=== PATIENT | female | born 1980 | race Caucasian/White ===

== ENCOUNTER 2018-05-07 15:24 | Emergency (ER) | payer SELFPAY ==
[~2018-05-07] VITALS: Ht 170.2 cm; Wt 104.5 kg
[2018-05-07 15:26] VITALS: BP 124/76; PULSE 72; TEMP 97.6
[2018-05-07] MEDS ORDERED: PEN-VEE K500 MG PO (15:43)
[2018-05-07] MEDS ORDERED: PERCOCET 325 MG1 TA2 PO (15:43)
[2018-05-08] MEDS ORDERED: ZOFRAN 4MG T4 MG/TAB PO (16:27)
== END 2018-05-07 15:57 | disposition home or self-care (01) ==
LOC: COL.ER 15:24
DX: K08.89 Other specified disorders of teeth and supporting structures (principal)

== ENCOUNTER 2018-05-08 14:24 | Emergency (ER) | payer SELFPAY ==
[~2018-05-08] VITALS: Ht 170.2 cm; Wt 104.5 kg
[~2018-05-08 14:24] MED LIST: PEN-VEE K500 MG PO; PERCOCET 325 MG1 TA2 PO
[2018-05-08 14:34] VITALS: BP 114/65; TEMP 98
[2018-05-08] MEDS ORDERED: ZOFRAN 4MG T4 MG/TAB PO (16:27)
[2018-05-08 16:46] VITALS: PULSE 64
== END 2018-05-08 16:46 | disposition home or self-care (01) ==
LOC: COL.ER 14:24
DX: K04.7 Periapical abscess without sinus (principal); Z98.51 Tubal ligation status
CPT/HCPCS: J2405; J3010; J7030